=== PATIENT | male | born 1955 | race Caucasian/White ===

== ENCOUNTER → 2017-05-17 | Day surgery (SDC) | payer OTHER ==
[~2017-05-17] MED LIST: ALLE25CA5 PO; BUPIVACAINE HCL PF 0.5% 30 ML VIAL ONE; DICY1TAB26 PO; GENTAMICIN SULFATE 80 MG/2 ML VIAL ONE; KCL10C PO; LACTATED RINGER'S 1000 ML INJ 1,000 ML ONE; LIDOCAINE HCL 1% PF 30 ML VIAL ONE; LOMO PO; MIDAZOLAM HCL 2 MG/2 ML VIAL ONE; NEOMYCIN/POLYMYXIN/BACITRACIN OINT 15 GM TUBE ONE; ONDANSETRON HCL 4 MG/2 ML VIAL IV PUSH ONE; PROPOFOL 200 MG/20 ML AMP IV ONE; RIVA20 PO; SODIUM CHLORIDE 0.9% SOLN 100 ML BAG IV ONE
--- NOTE | 2017-05-17 12:42 | TN ---
cc: NICCI RODRIGUEZ M.D. DATE OF SURGERY 05/17/2017 PREOPERATIVE DIAGNOSIS 1. Meatal stenosis (ICD-10 code N35.9) 2. Gross hematuria (ICD-10 code R31.0) POSTOPERATIVE DIAGNOSIS 1. Meatal stenosis (ICD-10 code N35.9) 2. Gross hematuria (ICD-10 code R31.0) PROCEDURE 1. Meatotomy (CPT code 23706) 2. Cystourethroscopy (CPT code 55763) INDICATIONS Mr. Rock is a 61-year-old gentleman who is being evaluated for painless gross hematuria. Recently on physical examination, he was found to have a stenotic meatus and presents now for meatotomy and definitive cystoscopy as part of his hematuria workup. FINDINGS The findings were a pinpoint stenotic meatus. The urethra was within normal limits anteriorly and the prostatic urethra showed bilateral hyperplasia moderately obstructing with an open bladder neck. The bladder itself showed ureteral orifice normal size, shape and position effluxing clear urine. There was some mild trabeculation. No diverticula, cellules or calcifications identified. No tumors or abnormal mucosa, essentially unremarkable. PROCEDURE The procedure, as well as risks and benefits were explained to the patient. Informed consent was obtained. The patient was taken to the major operative theater where he was placed in a supine position. The patient was identified, as well as the operative site. A universal time-out was performed in standard fashion. At this time, general anesthetic and prophylactic intravenous antibiotics consisting of gentamicin 80 mg were administered. After adequate anesthetic, the patient was placed in the low dorsolithotomy position, prepped and draped in the usual sterile fashion. At this time using a lacrimal probe, a serial dilation of the pinpoint meatus was performed and then using [place] sounds, the meatus was dilated up to 30 [place] and then a mosquito clamp was placed on the dorsal aspect of the stenosis and clamped for three minutes and then removed and then using tenotomy scissors, a wedge resection was performed of the area and then using 4-0 Monocryl suture, this skin edges were then closed in an interrupted pattern on both sides. At this time, after completion of the meatotomy, the 22.5 [place] cystoscope was placed in the urethra into the bladder. The 38 degrees lens was exchanged for a 70 lens. The entire bladder was systematically surveyed with the above findings. The bladder was decompressed. The cystoscope removed. The patient tolerated the procedure well and emerged from anesthetic without difficulty and transferred to the recovery room in stable condition to be discharged home when criteria is met. There are no obvious complications. MD MICHELLE Ayala/[place] /12:31 PM /12:39 PM
== END | disposition home or self-care (01) ==
LOC: ESDC 09:37
PROVIDERS: ATTEND Urology
DX: N35.9 Urethral stricture, unspecified (principal); R31.0 Gross hematuria
CPT/HCPCS: 00910; 52290; J1580; J2250; J2405; J3010; J7120